=== PATIENT | female | born 1960 | race Caucasian/White ===

== ENCOUNTER 2018-09-18 11:48 | Day surgery (SDC) | payer BC ==
[2018-09-18] MEDS ORDERED: Betamethasone Acetate/Betamethasone Sod Phosphate 30 MG/5 ML MDV ONE (12:04)
[2018-09-18] MEDS ORDERED: Ropivacaine 0.5% 5 MG/ML 30 ML SDV ONE (12:04)
[2018-09-18] MEDS ORDERED: Lidocaine 2% 5 ML SDV ONE (12:04)
[2018-09-18] MEDS ORDERED: Iopamidol 408 MG/ML 50 ML SDV ONE (12:04)
--- NOTE | 2018-09-18 21:38 | OR ---
SURGEON: Tia Hallman D.O. DATE OF PROCEDURE: 09/18/2018 OR STAFF PRESENT: 1. Bhanu Blair. 2. Grant Doherty. 3. RT Treasure. PREOPERATIVE DIAGNOSES: 1. Lumbar degenerative disk disease. 2. Lumbar spondylosis. 3. Lumbar radiculopathy. 4. Lumbar spinal stenosis. POSTOPERATIVE DIAGNOSES: 1. Lumbar degenerative disk disease. 2. Lumbar spondylosis. 3. Lumbar radiculopathy. 4. Lumbar spinal stenosis. PROCEDURES PERFORMED: 1. Caudal epidural steroid injection. 2. Fluoroscopic guidance for needle placement. 3. Local with oral Valium for sedation. SCREENING QUESTIONS: The patient answered "no" to all of the following questions: 1. Are you allergic to latex? 2. Do you have a bleeding disorder? 3. Do you have any current local or systemic infections? 4. Are you taking any anti-inflammatories or blood thinners? 5. Do you have any joint replacements, heart valve replacements, or a pacemaker? DESCRIPTION OF PROCEDURE: The patient had the procedure thoroughly explained including all possible risks, benefits and alternatives. Consent was signed in my clinic indicating understanding and willingness to proceed. The patient presented to [facility] [place] and was escorted to the dressing room to disrobe and change into a hospital gown. Preoperative vital signs were taken and stable. The patient reported that Valium was taken prior to the procedure. The patient was brought back to the procedure room and placed in the prone position on the procedure room table. A pillow was placed under the hips in order to flatten the lumbar lordosis. The back was prepped with ChloraPrep and sterilely draped. All personnel in the operating room were dressed in appropriate attire including surgical scrubs, head and shoe covers. This was to ensure sterility while in the treatment room. During the time fluoroscopy was in use, all personnel in the operating room wore lead rivera with thyroid collars. Sterile technique was used throughout the procedure. The patient was awake and conversant throughout the procedure. There was no evidence of infection at the site of needle insertion. Skeletal landmarks were identified under fluoroscopy for the lumbar epidural. Skin was anesthetized with 2% lidocaine with a sterile 27-gauge 1.5 inch needle. Then a 20-gauge Tuohy epidural needle was placed in the epidural space with loss of resistance technique under fluoroscopic guidance. No heme, cerebrospinal fluid, or paresthesias were noted. Isovue-200 contrast dye was injected in 0.2 cubic centimeter increments and seen to outline the epidural space in both AP and lateral views. There was no intravascular flow pattern observed under live fluoroscopy. Then 12 milligrams of Celestone was slowly injected after negative aspiration. The patient tolerated the procedure well. Vital signs were stable during and after the procedure. The staff escorted the patient to the recovery area and the patient was released in stable condition after a brief stay in the recovery room monitored by the nurse. The patient was given both oral and written discharge and follow up instructions with recommendation to follow up given for 2-3 weeks. The patient voiced understanding including understanding of those signs and symptoms that would require emergency care. The patient knows how to contact the office if there are any additional problems or questions in the meantime. PREOPERATIVE PAIN: 6/10. POSTOPERATIVE PAIN: 3/10. FOLLOWUP: In the pain clinic in 3 weeks. OSCAR / JUAN /[id number]
== END 2018-09-18 14:19 ==
LOC: MW.SDS 11:48
PROVIDERS: ATTEND Anesthesiology
DX: G89.29 Other chronic pain (principal); M51.16 Intervertebral disc disorders with radiculopathy, lumbar region; M47.26 Other spondylosis with radiculopathy, lumbar region; M48.061 Spinal stenosis, lumbar region without neurogenic claudication; M79.18 Myalgia, other site; M96.1 Postlaminectomy syndrome, not elsewhere classified; Z79.899 Other long term (current) drug therapy; Z88.0 Allergy status to penicillin; Z88.2 Allergy status to sulfonamides
CPT/HCPCS: 62323; J0702; J2001; J2795; Q9966

== ENCOUNTER 2019-10-11 13:28 | Emergency (ER) | payer OTHER ==
[2019-10-11 14:53] LABS: CARBON DIOXIDE,CO2 26.8 mmol/L (21.0-32.0)
[2019-10-11 14:58] LABS: POTASSIUM,K 4.6 mmol/L (3.5-5.1)
--- NOTE | 2019-10-11 15:09 | CR ---
Chest: Portable view of the chest was obtained. Comparison: Prior chest x-ray of 10/02/19. Heart size and mediastinum are normal. Lungs are clear with no acute parenchymal change. Bony structures are unremarkable for the patient's age. Impression: 1. Nothing acute is appreciated on portable chest x-ray. Diagnostic code #1 Study was dictated in MDT
--- NOTE | 2019-10-11 16:16 | EDM.PDOC ---
ED HPI GENERAL MEDICAL PROBLEM - General Chief Complaint: Abdominal Pain Stated Complaint: NAUSEA/WEAKNESS Time Seen by Provider: 10/11/19 13:34 - History of Present Illness INITIAL COMMENTS - FREE TEXT/NARRATIVE: HPI 59-year-old obese female presents for evaluation of approximately one week of feeling unwell and fatigued, patient endorses 2 years of unchanged waxing waning epigastric discomfort with intermittent nausea. Patient currently without epigastric discomfort but has her mild and typical nausea. No dysuria, urinary frequency, chest pain, shortness breath. Patient finished today a course of steroids prescribed by an outside provider. Patient reports that she has not had labs done sometime is concerned that she is anemic. Patient takes tramadol and [place] for chronic pain, and recently started phentermine in addition to her venlafaxine, duloxetine, and lisinopril-hydrochlorothiazide. M/S/F/SocHx notable for: please see HPI; remainder reviewed with patient and in chart. ROS: Negative constitutional, eye, cardiovascular, pulmonary, GI, , MSK, skin , neurologic, psychiatric, endocrine unless noted in the HPI. Exam HR 100, RR 20, BP 126/91, T 35.3C, SaO2 97% on room air. Gen: Pleasant, non-toxic appearing, resting comfortably. HEENT: NC, AT, PEERL, EOMI. Resp: Clear to auscultation bilaterally, normal work of breathing, no accessory muscle usage. Card: Regular rate and rhythm with no murmurs, rubs, or gallops, extremities warm and well perfused. GI: Non-tender to palpation throughout all quadrants, no focal tenderness at McBurney's point, negative Goldman's sign, non-distended, no rebound or guarding. : No suprapubic tenderness to palpation. MSK: No visible deformities, strength and tone without visually appreciable deficit. Skin: Normal color with no visible lesions. Neuro: alert and oriented 3, no facial asymmetry, vision and hearing WNL. Psych: Mood and affect appropriate. Labs / Imaging: WBC 18.98, HB 14.4, lactic 1.4, sodium 135, potassium 4.6, creatinine 1.1, AST 12, ALT 25, total bilirubin 0.5, alkaline phosphatase 116, lipase 100, TSH 3.12 , hCG negative. CXR: nothing acute is appreciated on portable chest x-ray. UA -negative leukocyte esterase, negative nitrate, negative occult blood. MDM Previous chart, nursing note, labs, imaging, and vitals reviewed. A: 59-year-old obese female presents for evaluation of approximately one week of feeling unwell and fatigued, patient endorses 2 years of unchanged waxing waning epigastric discomfort with intermittent nausea. Evaluation: patient without discernible abnormalities on history or exam aside from mild fatigue or malaise over the last week. The patient has notable leukocytosis, however the patient recently finished a course of steroids and is without discernible acute infectious processes. Currently suspect her elevated white blood cell count is secondary to steroid use. UA is without evidence of infection, abdominal exam is benign and the patient continues to take PO well pass urine, flatus, stool baseline. TSH is within normal limits, hCG is negative , and the patients chest x-ray is unremarkable. The history and exam are not consistent with a cardiac etiology, as such an EKG nor cardiac enzymes or BMP were indicated. PE was considered on the differential, however the patients without chest pain, shortness breath, or further identifiable risk factors, as such further evaluation is not presently indicated. Patient was recommended to follow up with her PCP for repeat evaluation within 48 hours. Impression: fatigue. abdomen Pain Score (Numeric/FACES): 5 - Related Data Allergies Allergy/AdvReac Type Severity Reaction Status Date / Time Penicillins Allergy Rash Verified 10/11/19 13:38 Home Meds: Home Meds Cholecalciferol (Vitamin D3) [Vitamin D] 5,000 unit PO DAILY 10/11/19 [History] DULoxetine [Cymbalta] 60 mg PO DAILY 10/11/19 [History] Hydrocodone/Acetaminophen [Hydrocodon-Acetaminophn 10-325] 10 - 325 mg PO Q6HR PRN 10/11/19 [History] Lisinopril/Hydrochlorothiazide [Lisinopril-Hctz 20-12.5 mg Tab] 12.5 - 20 mg PO BID 10/11/19 [History] Phentermine HCl 37.5 mg PO DAILY 10/11/19 [History] Venlafaxine [Effexor XR] 75 mg PO BID 10/11/19 [History] traMADol HCl [Tramadol HCl] 100 mg PO BID 10/11/19 [History] Past Medical History Cardiovascular History: Reports: Hypertension Gastrointestinal History: Reports: Other (See Below) Other Gastrointestinal History: chronic abdominal pain Genitourinary History: Reports: None 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: Musculoskeletal History: Reports: None Neurological History: Reports: Other (See Below) Psychiatric History: Reports: Depression - Infectious Disease History Infectious Disease History: Reports: Chicken Pox - Past Surgical History Cardiovascular Surgical History: Reports: None GI Surgical History: Reports: None Female Surgical History: Reports: Hysterectomy Neurological Surgical History: Reports: Other (See Below) Other Neurological Surgeries/Procedures: Laminectomy L3-L4 Musculoskeletal Surgical History: Reports: Other (See Below) Other Musculoskeletal Surgeries/Procedures:: laminectomy L3-L4 Social & Family History - Family History Family Medical History: Noncontributory - Tobacco Use Smoking Status *Q: Never Smoker Second Hand Smoke Exposure: No - Caffeine Use Caffeine Use: Reports: None - Recreational Drug Use Recreational Drug Use: No ED ROS GENERAL - Review of Systems Review Of Systems: See Below ED EXAM, GENERAL - Physical Exam Exam: See Below Course - Vital Signs Last Recorded V/S: Last Vital Signs Temp 35.3 C L 10/11/19 13:33 Pulse 100 10/11/19 13:33 Resp 20 10/11/19 13:33 BP 126/91 H 10/11/19 13:33 Pulse Ox 97 10/11/19 13:33 - Orders/Labs/Meds Labs: Laboratory Tests 10/11/19 10/11/19 10/11/19 Range/Units 14:03 14:03 14:03 WBC 18.98 H (4.0-11.0) K/uL RBC 4.72 (4.30-5.90) M/uL Hgb 14.4 (12.0-16.0) g/dL Hct 43.5 (36.0-46.0) % MCV 92.2 (80.0-98.0) fL MCH 30.5 (27.0-32.0) pg MCHC 33.1 (31.0-37.0) g/dL RDW Std Deviation 50.9 (28.0-62.0) fl RDW Coeff of Destiny 15 (11.0-15.0) % Plt Count 638 H (150-400) K/uL MPV 8.80 (7.40-12.00) fL Add Manual Diff YES Neutrophils % (Manual) 55 (48.0-80.0) % Band Neutrophils % 5 % Lymphocytes % (Manual) 34 (16.0-40.0) % Monocytes % (Manual) 1 (0.0-15.0) % Metamyelocytes % 1 % Myelocytes % 4 % Nucleated RBC % 0.0 /100WBC Absolute Seg Neuts 10.4 H (1.4-5.7) Band Neutrophils # 0.9 Lymphocytes # (Manual) 6.5 H (0.6-2.4) Monocytes # (Manual) 0.2 (0.0-0.8) Absolute Metamyelocyte 0.2 Absolute Myelocytes 0.8 Nucleated RBCs # 0 K/uL Lactate (0.20-2.00) mmol/L Sodium 135 L (136-145) mmol/L Potassium 4.6 (3.5-5.1) mmol/L Chloride 98 (98-107) mmol/L Carbon Dioxide 26.8 (21.0-32.0) mmol/L BUN 32 H (7.0-18.0) mg/dL Creatinine 1.1 H (0.6-1.0) mg/dL Est Cr Clr Drug Dosing 48.73 mL/min Estimated GFR (MDRD) 51.2 ml/min Glucose 112 H (74-106) mg/dL Calcium 8.9 (8.5-10.1) mg/dL Total Bilirubin 0.5 (0.2-1.0) mg/dL AST 12 L (15-37) IU/L ALT 25 (14-63) IU/L Alkaline Phosphatase 116 (46-116) U/L Total Protein 7.6 (6.4-8.2) g/dL Albumin 3.6 (3.4-5.0) g/dL Globulin 4.0 (2.6-4.0) g/dL Albumin/Globulin Ratio 0.9 (0.9-1.6) Lipase 100 (73-393) U/L TSH 3rd Generation 3.12 (0.36-3.74) uIU/mL HCG, Qual NEGATIVE (NEG) Urine Color Urine Appearance Urine pH (5.0-8.0) Ur Specific Lambert (1.001-1.035) Urine Protein (NEGATIVE) mg/dL Urine Glucose (UA) (NEGATIVE) mg/dL Urine Ketones (NEGATIVE) mg/dL Urine Occult Blood (NEGATIVE) Urine Nitrite (NEGATIVE) Urine Bilirubin (NEGATIVE) Urine Urobilinogen (<2.0) EU/dL Ur Leukocyte Esterase (NEGATIVE) 10/11/19 10/11/19 Range/Units 15:12 15:35 WBC (4.0-11.0) K/uL RBC (4.30-5.90) M/uL Hgb (12.0-16.0) g/dL Hct (36.0-46.0) % MCV (80.0-98.0) fL MCH (27.0-32.0) pg MCHC (31.0-37.0) g/dL RDW Std Deviation (28.0-62.0) fl RDW Coeff of Destiny (11.0-15.0) % Plt Count (150-400) K/uL MPV (7.40-12.00) fL Add Manual Diff Neutrophils % (Manual) (48.0-80.0) % Band Neutrophils % % Lymphocytes % (Manual) (16.0-40.0) % Monocytes % (Manual) (0.0-15.0) % Metamyelocytes % % Myelocytes % % Nucleated RBC % /100WBC Absolute Seg Neuts (1.4-5.7) Band Neutrophils # Lymphocytes # (Manual) (0.6-2.4) Monocytes # (Manual) (0.0-0.8) Absolute Metamyelocyte Absolute Myelocytes Nucleated RBCs # K/uL Lactate 1.4 (0.20-2.00) mmol/L Sodium (136-145) mmol/L Potassium (3.5-5.1) mmol/L Chloride (98-107) mmol/L Carbon Dioxide (21.0-32.0) mmol/L BUN (7.0-18.0) mg/dL Creatinine (0.6-1.0) mg/dL Est Cr Clr Drug Dosing mL/min Estimated GFR (MDRD) ml/min Glucose (74-106) mg/dL Calcium (8.5-10.1) mg/dL Total Bilirubin (0.2-1.0) mg/dL AST (15-37) IU/L ALT (14-63) IU/L Alkaline Phosphatase (46-116) U/L Total Protein (6.4-8.2) g/dL Albumin (3.4-5.0) g/dL Globulin (2.6-4.0) g/dL Albumin/Globulin Ratio (0.9-1.6) Lipase (73-393) U/L TSH 3rd Generation (0.36-3.74) uIU/mL HCG, Qual (NEG) Urine Color YELLOW Urine Appearance CLEAR Urine pH 5.5 (5.0-8.0) Ur Specific Lambert 1.020 (1.001-1.035) Urine Protein NEGATIVE (NEGATIVE) mg/dL Urine Glucose (UA) NEGATIVE (NEGATIVE) mg/dL Urine Ketones NEGATIVE (NEGATIVE) mg/dL Urine Occult Blood NEGATIVE (NEGATIVE) Urine Nitrite NEGATIVE (NEGATIVE) Urine Bilirubin NEGATIVE (NEGATIVE) Urine Urobilinogen 0.2 (<2.0) EU/dL Ur Leukocyte Esterase NEGATIVE (NEGATIVE) Departure - Departure Time of Disposition: 16:15 Disposition: Home, Self-Care 01 Clinical Impression: Fatigue - Discharge Information Referrals: PCP,None [Primary Care Provider] - Additional Instructions: You were in seen in the [facility] Emergency Department for evaluation of fatigue and nausea. At the time of your evaluation the cause of your symptoms is unclear. These follow-up your primary care physician within 48 hours repeat evaluation and further care. Please read and follow all of the instructions below. When calling for follow-up care, please make the office aware that this follow- up is from your recent emergency room visit. If for any reason you are refused follow-up, please contact the [facility] Emergency Department at and asked to speak to the emergency department charge nurse. Your care today was limited to identifying and treating emergent medical problems only. Many people have subtle differences in their test results that require follow up with their outpatient physician(s) to correctly determine if this represents a normal variation or concerning abnormality with respect to your specific health. The care given to you today was limited to identifying and treating emergent medical problems - you need to request a copy of all of your medical records from today's visit and follow up with your outpatient physician(s) to review both today's visit and your overall health. If you have any new symptoms or if you are at all concerned about your health please return immediately to the emergency department. Prescriptions: If you are uninsured or have financial difficulties with filling your prescription(s), you may consider using a free pharmacy discount service such as ams [employer] ([employer]) or IfOnly ([employer]). These services allow you to search for a medication on your phone (or computer) and obtain a coupon that usually has a significant discount from the list ritter at a pharmacy. Your physician as well as [facility] does not have a financial relationship with either of these services. You may also wish to speak with your physician to determine if lower cost prescriptions are possible. Obtaining primary care: 1. [facility] provides pediatrics (children), family medicine (children, adults, and some obstetrical care), and internal medicine (adults). Further specialty care is also available. Same day appointments are available. They may be contacted at [phone] and are open Monday through Monday 8 AM to 5 PM. The [facility] are located at [facility], [address] [place] [id number]. 2. [facility] offers family medicine, internal medicine, [facility], and further specialty care. [facility] may be contacted at [phone]. [facility] is located at [facility]. [place] [phone]. 3. If you have health insurance, please also contact your insurer for a list of accepting providers under your policy, you may contact these providers for further health care. Occupational health: Work related injuries may consider following up with [facility], . Occupational health services are located at [address] [place] [id number] and are open Monday through Monday from 7: 30 am to 5:00 pm. Obstetrical and Gynecological Care: [facility], , Monday through Monday 8 AM to 5 PM. [address], [place] [address]. Eyecare: If you have an eye injury you should follow up with your box toe cementer or with [facility], at [phone] or [phone] , they are located at [address] [place] [address]. [facility] Olman Hidalgo DDS. [address] [facility].[place], [place]. Ph. [phone] Bradley Hidalgo DDS [place]. [address] [facility] [address], [place], [place]. Ph. [phone] Renato Murillo DDS. 10 07/[address] [place] [address], [place], [place]. Ph. [phone] Blu Perez DDS. [address] [facility] 4 [place], [place]. Ph. [phone] Geoff Collins DDS PC. [address] [place], [place]. Ph. [phone] Shahnaz Stevenson DDS. [address] [facility]. Ph. [phone] [facility]. [address] [place], [place]. Ph. [phone] [facility]. [address] [place] [address], [place], [place]. Ph. [phone] [facility] [address] [place] [phone]. Ph. [facility]. [address] [place] [address] [address] [place], [place]. Ph. [facility]. [address] [place]. Ph. [phone] Sepsis Event Note - Evaluation Sepsis Screening Result: No Definite Risk - Focused Exam Vital Signs: Vital Signs Temp Pulse Resp BP Pulse Ox 10/11/19 13:33 35.3 C L 100 20 126/91 H 97 Date Exam was Performed: 10/11/19 Time Exam was Performed: 16:15
== END 2019-10-11 16:53 | disposition home or self-care (01) ==
LOC: MW.ED 13:28
DX: R53.83 Other fatigue (principal); I10 Essential (primary) hypertension; F32.9 Major depressive disorder, single episode, unspecified; Z79.899 Other long term (current) drug therapy; Z88.0 Allergy status to penicillin
CPT/HCPCS: 36415; 71045; 71045-26; 80053; 81003; 83605; 83690; 84443; 84703; 85025; 99283; 99283-25

== ENCOUNTER 2020-02-18 19:03 | Emergency (ER) | payer OTHER ==
[2020-02-18] MEDS ORDERED: Diphtheria,Pertussis(Acell),Tetanus Vaccine 0.5 ML Syringe IM ONE (19:34)
--- NOTE | 2020-02-18 19:39 | EDM.PDOC ---
ED HPI GENERAL MEDICAL PROBLEM - General Chief Complaint: Lower Extremity Injury/Pain Stated Complaint: FELL OFF PORCH INJURED LEG AND ARM Time Seen by Provider: 02/18/20 19:22 Source of Information: Reports: Patient History Limitations: Reports: No Limitations - History of Present Illness INITIAL COMMENTS - FREE TEXT/NARRATIVE: History of present illness: [Patient is a 59-year-old female who presents to the ED after a mechanical fall at home. She states that she tripped over a hose and fell down about 3 stairs. She landed on her left knee, left elbow, and face. She complains of left knee pain, left elbow pain, she sustained abrasions to the elbow and the face including the bridge of the nose, the tip of the nose, and above the upper lip. She denies loss of consciousness. She denies any headache, blurry vision, neck pain. She denies any focal neuro deficits. She denies any syncope associate with the event. She denies any chest pain or shortness of breath. She took a [place] prior to arrival. She was unable to bear significant weight on the left leg after the fall, her helped her up, she was driven here by granddaughter.] Review of systems: As per history of present illness and below otherwise all systems reviewed and negative. Past medical history: As per history of present illness and as reviewed below otherwise noncontributory. Surgical history: As per history of present illness and as reviewed below otherwise noncontributory. Social history: No reported history of drug or alcohol abuse. Family history: As per history of present illness and as reviewed below otherwise noncontributory. Physical exam: General: Awake, alert, no acute distress, A&O X3. HEENT: Abrasion to the bridge of the nose, the tip of the nose, and just above the upper lip. No lacerations. Mild swelling of the bridge of the nose. EOMI, PERRL, normocephalic, negative for conjunctival pallor or scleral icterus, mucous membranes moist, throat clear, neck supple, nontender, trachea midline. Lungs: Clear to auscultation, breath sounds equal bilaterally, chest nontender. Heart: RRR, normal S1S2, no JVD. Abdomen: Soft, nondistended, nontender. Negative for masses or hepatosplenomegaly. Negative for costovertebral tenderness. Pelvis: Stable nontender. Genitourinary: Deferred. Rectal: Deferred. Extremities: mild tenderness to palp berny left anterior knee and proximal to knee with associated ecchymosis and mild swelling. L leg is NV intact. Abrasions to the left forearm and elbow. The left elbow is not particularly tender to palpation. Has normal range of motion. Left arm is neurovascular intact. Neuro: Motor and sensory grossly intact throughout. Exam nonfocal. Diagnostics: [] Therapeutics: [] Impression: [] Plan: [] Definitive disposition and diagnosis as appropriate pending reevaluation and review of above. - Related Data Allergies Allergy/AdvReac Type Severity Reaction Status Date / Time Penicillins Allergy Rash Verified 02/18/20 19:33 Home Meds: Home Meds Cholecalciferol (Vitamin D3) [Vitamin D] 5,000 unit PO DAILY 10/11/19 [History] DULoxetine [Cymbalta] 60 mg PO DAILY 10/11/19 [History] Hydrocodone/Acetaminophen [Hydrocodon-Acetaminophn 10-325] 10 - 325 mg PO Q6HR PRN 10/11/19 [History] Lisinopril/Hydrochlorothiazide [Lisinopril-Hctz 20-12.5 mg Tab] 12.5 - 20 mg PO BID 10/11/19 [History] Phentermine HCl 37.5 mg PO DAILY 10/11/19 [History] Venlafaxine [Effexor XR] 75 mg PO DAILY 10/11/19 [History] traMADol HCl [Tramadol HCl] 100 mg PO BID 10/11/19 [History] Past Medical History Cardiovascular History: Reports: Hypertension Gastrointestinal History: Reports: Other (See Below) Other Gastrointestinal History: chronic abdominal pain Genitourinary History: Reports: None 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: Musculoskeletal History: Reports: None Neurological History: Reports: Other (See Below) Psychiatric History: Reports: Depression - Infectious Disease History Infectious Disease History: Reports: None - Past Surgical History Cardiovascular Surgical History: Reports: None GI Surgical History: Reports: None Female Surgical History: Reports: Hysterectomy Neurological Surgical History: Reports: Other (See Below) Other Neurological Surgeries/Procedures: Laminectomy L3-L4 Musculoskeletal Surgical History: Reports: Other (See Below) Other Musculoskeletal Surgeries/Procedures:: laminectomy L3-L4 Social & Family History - Family History Family Medical History: Noncontributory - Tobacco Use Smoking Status *Q: Never Smoker - Caffeine Use Caffeine Use: Reports: Coffee - Recreational Drug Use Recreational Drug Use: No Review of Systems - Review of Systems Review Of Systems: Comprehensive ROS is negative, except as noted in HPI. ED EXAM, GENERAL - Physical Exam Exam: See Below (see h and p) Course - Vital Signs Text/Narrative:: X-rays are negative. Pain is controlled here in the ED. Encouraged her to follow-up in the outpatient setting. Use ice for swelling and pain. She already has [place] that she uses on an as-needed basis at home for chronic pain. I encouraged her to continue using this as needed and previously directed. Return precautions provided. Otherwise she was stable and well-appearing at the time of discharge. I do not believe a CT scan of the head is warranted at this time. She has no blurry vision, no severe headache, trauma was fairly mild including abrasions to the nose and upper lip and there was no associated loss of consciousness or episodes of vomiting. Last Recorded V/S: Last Vital Signs Temp 36.2 C 02/18/20 19:29 Pulse 98 02/18/20 19:29 Resp 18 02/18/20 19:29 BP 115/58 L 02/18/20 19:29 Pulse Ox 96 02/18/20 19:29 - Orders/Labs/Meds Orders: Active Orders 24 hr Category Date Time Status Vaccines to be Administered [RC] PER UNIT ROUTINE Care 02/18/20 19:34 Active Acetaminophen/oxyCODONE [Percocet 325-5 MG] Med 02/18/20 21:12 Once 1 tab PO ONETIME ONE Meds: Medications Discontinued Medications Generic Name Dose Route Start Last Admin Trade Name Freq PRN Reason Stop Dose Admin Diphtheria/Tetanus/Acell Pertussis 0.5 ml 02/18/20 19:34 02/18/20 19:39 Adacel IM 02/18/20 19:35 0.5 ml .ONCE ONE Administration Departure - Departure Time of Disposition: 21:14 Disposition: Home, Self-Care 01 Condition: Good Clinical Impression: Knee contusion, Elbow contusion - Discharge Information Instructions: Contusion, [id number], How to Use Cold Therapy Referrals: Osiris Harrison DO [Primary Care Provider] - Forms: ED Department Discharge Additional Instructions: Follow-up with primary care doctor. Take all medications as previously prescribed. Return to the ER with any new or worsening symptoms. The following information is given to patients seen in the emergency department who are being discharged to home. This information is to outline your options for follow-up care. We provide all patients seen in our emergency department with a follow-up referral. The need for follow-up, as well as the timing and circumstances, are variable depending upon the specifics of your emergency department visit. If you don't have a primary care physician on staff, we will provide you with a referral. We always advise you to contact your personal physician following an e mergency department visit to inform them of the circumstance of the visit and for follow-up with them and/or the need for any referrals to a consulting specialist. The emergency department will also refer you to a specialist when appropriate. This referral assures that you have the opportunity for follow-up care with a specialist. All of these measure are taken in an effort to provide you with op timal care, which includes your follow-up. Under all circumstances we always encourage you to contact your private physician who remains a resource for coordinating your care. When calling for follow-up care, please make the office aware that this follow-up is from your recent emergency room visit. If for any reason you are refused follow-up, please contact the [facility] Emergency Department at and asked to speak to the emergency department charge nurse. Sepsis Event Note (ED) - Evaluation Sepsis Screening Result: No Definite Risk - Focused Exam Vital Signs: Vital Signs Temp Pulse Resp BP Pulse Ox 02/18/20 19:29 36.2 C 98 18 115/58 L 96 - My Orders Last 24 Hours: My Active Orders 02/18/20 19:34 Vaccines to be Administered [RC] PER UNIT ROUTINE 02/18/20 21:12 Acetaminophen/oxyCODONE [Percocet 325-5 MG] 1 tab PO ONETIME ONE - Assessment/Plan Last 24 Hours: My Active Orders 02/18/20 19:34 Vaccines to be Administered [RC] PER UNIT ROUTINE 02/18/20 21:12 Acetaminophen/oxyCODONE [Percocet 325-5 MG] 1 tab PO ONETIME ONE
--- NOTE | 2020-02-18 21:06 | CR ---
HISTORY: Fall. TECHNIQUE: Three views of left elbow. COMPARISON: No prior. FINDINGS: No acute fracture. Mild spurring of the sublime tubercle of the proximal ulna. Small focus of ossification within the medial soft tissues appears chronic. No posterior fat pad sign to suggest elbow joint effusion. IMPRESSION: No acute fracture or malalignment. Dictated by Moi Bone MD @ 02/18/2020 9:04:48 PM Dictated by: Moi Bone MD @ 02/18/2020 21:04:52 (Electronically Signed)
--- NOTE | 2020-02-18 21:06 | CR ---
HISTORY: Fall. TECHNIQUE: Three views of the left knee. COMPARISON: No prior. FINDINGS: There is no acute fracture. There are degenerative changes of the left knee. No suprapatellar joint effusion. 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 Infiltration of the anterior subcutaneous tissues of the distal thigh may relate to recent trauma. Small ossified body along the posterior aspect of the medial joint space compartment. IMPRESSION: 1. No acute fracture. 2. Mild degenerative changes. 3. Infiltration of the subcutaneous tissues of the anterior distal thigh may relate to recent trauma. Dictated by Moi Bone MD @ 02/18/2020 9:03:21 PM Dictated by: Moi Bone MD @ 02/18/2020 21:03:27 (Electronically Signed)
[2020-02-18] MEDS ORDERED: Acetaminophen/oxyCODONE 325-5 MG Tab PO ONE (21:12)
== END 2020-02-18 21:31 | disposition home or self-care (01) ==
LOC: MW.ED 19:03
DX: S80.02XA Contusion of left knee, initial encounter (principal); S50.02XA Contusion of left elbow, initial encounter; S00.31XA Abrasion of nose, initial encounter; S00.511A Abrasion of lip, initial encounter; S50.812A Abrasion of left forearm, initial encounter; I10 Essential (primary) hypertension; F32.9 Major depressive disorder, single episode, unspecified; Z90.710 Acquired absence of both cervix and uterus; Z88.0 Allergy status to penicillin; Z79.899 Other long term (current) drug therapy; Z23 Encounter for immunization; W10.9XXA Fall (on) (from) unspecified stairs and steps, initial encounter; Y92.009 Unspecified place in unspecified non-institutional (private) residence as the place of occurrence of the external cause
CPT/HCPCS: 73080; 73562; 90471; 90715; 99283; A9270